=== PATIENT | female | born 1960 | race Caucasian/White ===

== ENCOUNTER → 2018-03-14 19:00 | Outpatient (CLI) | payer BC ==
[2014-03-17 09:30] VITALS: BMI 26.5
[~2018-03-14 19:00] MED LIST: BACTRIM DS TABL1 TAB PO; FLINTSTONE1 TAB.CHEW PO; HYDROCODONE-APA1 TAB PO
== END | disposition home or self-care (01) ==
LOC: D.MAMMO 11:30
DX: Z12.31 Encounter for screening mammogram for malignant neoplasm of breast (principal)

== ENCOUNTER → 2018-04-09 22:11 | Outpatient (CLI) | payer BC ==
[2014-03-17 09:30] VITALS: BMI 26.5
== END | disposition home or self-care (01) ==
LOC: D.MAMMO 09:30
DX: R92.8 Other abnormal and inconclusive findings on diagnostic imaging of breast (principal)

== ENCOUNTER 2020-03-18 10:30 | Outpatient (CLI) | payer BC ==
[2014-03-17 09:30] VITALS: BMI 26.5
== END 2020-03-18 11:30 | disposition home or self-care (01) ==
LOC: D.MAMMO 10:30
PROVIDERS: ATTEND Nurse Practitioner
DX: R92.8 Other abnormal and inconclusive findings on diagnostic imaging of breast (principal)